=== PATIENT | female | born 1985 | race Caucasian/White ===

== ENCOUNTER → 2016-04-13 | Outpatient (CLI) | payer BC ==
--- NOTE | 2016-04-13 09:14 | US ---
EXAMINATION TYPE: US abdomen complete DATE OF EXAM: 04/13/2016 8:31 AM COMPARISON: Prior abdominal ultrasound June 22, 2014 CLINICAL HISTORY: R10.11 RUQ PAIN. Symptoms x 2 years; autoimmune disorder and taking Methotrexate an d Folic Acid for this DX EXAM MEASUREMENTS: Liver Length: 14.7 cm Gallbladder Wall: 0.2 cm CBD: 0.6 cm Spleen: 5.9 cm Right Kidney: 12.3 X 4.1 X 5.4 cm Left Kidney: 11.5 X 4.5 X 4.7 cm TECHNOLOGIST IMPRESSION: Pancreas: wnl Liver: wnl Gallbladder: wnl Evidence for sonographic Flores's sign: No CBD: size is at upper limits of normal Spleen: small for size Right Kidney: No hydronephrosis or masses seen Left Kidney: No hydronephrosis or masses seen Upper IVC: wnl Abd Aorta: wnl Visualized pancreas is unremarkable. Visualized abdominal aorta shows no aneurysmal change. IVC is se en near hepatic dome. Visualized liver is homogeneous in echotexture. Common bile duct is 6 mm upper limits of normal not s ignificantly changed from prior. No shadowing mobile gallstones are seen in gallbladder. Kidneys are symmetric in size without concerning solid or cystic mass or hydronephrosis identified bi laterally. Spleen is somewhat small in size with even smaller measurements noted versus prior study. IMPRESSION: No significant finding is seen to account for patient's symptoms.
== END | disposition home or self-care (01) ==
LOC: RADUSWWP 07:59
PROVIDERS: ATTEND Family Medicine
DX: R10.11 Right upper quadrant pain (principal)
CPT/HCPCS: 76700